=== PATIENT | male | born 2000 | race Two or more races ===

== ENCOUNTER 2019-06-30 20:25 | Emergency (ER) | payer SELFPAY ==
[~2019-06-30] VITALS: Ht 157.5 cm; Wt 59.1 kg
[2019-06-30] MEDS ORDERED: TOLN15SO TP (20:52)
[2019-06-30 21:10] VITALS: BP 125/76
[2019-06-30 21:55] LABS: GLUCOSE,POINT OF CARE 141 MG/DL (70-110)
== END 2019-06-30 22:30 | disposition home or self-care (01) ==
LOC: EMS 20:32
DX: S90.421A Blister (nonthermal), right great toe, initial encounter (principal); L08.9 Local infection of the skin and subcutaneous tissue, unspecified; L97.521 Non-pressure chronic ulcer of other part of left foot limited to breakdown of skin; B35.1 Tinea unguium; W22.8XXA Striking against or struck by other objects, initial encounter; Y93.89 Activity, other specified; Y92.69 Other specified industrial and construction area as the place of occurrence of the external cause; Y99.8 Other external cause status